=== PATIENT | female | born 1990 | race Caucasian/White ===

== ENCOUNTER 2016-12-20 20:26 | Emergency (ER) | payer OTHER ==
[~2016-12-20] VITALS: Ht 165.1 cm; Wt 84.3 kg
[~2016-12-20 20:26] MED LIST: AUGM875T PO; TYLE3 PO
[2016-12-20] MEDS ORDERED: PREN29TA PO (20:36)
[2016-12-20 20:38] VITALS: BP 115/65; PULSE 80; RESP 16; TEMP 99; O2SAT 100
--- NOTE | 2016-12-20 21:04 | PD ---
HPI Chief Complaint: Abdominal Pain Time Seen by Provider: 21:01 Travel History International Travel<30 days: No Contact w/Intl Traveler<30days: No Traveled to known affect area: No History of Present Illness HPI 26-year-old female presents to the emergency department for complaint of right lower quadrant abdominal pain and right flank pain since Friday. Patient states she had a home test on Friday that was positive. Patient states Friday pain was 2/10 in intensity and currently is 6/10 in intensity. Patient denies fever chills nausea vomiting generalized abdominal pain dysuria frequency or urgency. Patient states times one episode after urination she noted some dark blood. Patient's last menstrual period was 11/17/16 and normal for her. Patient is sexually active with her partner/. Patient is 1 para 0 AB 0. Patient is status post appendectomy. Patient has had previous ovarian cysts. Patient also complained of yesterday having some chest discomfort and tightness that has resolved completely. PFSH Past Medical History Narrative Medical Anemia, appendectomy, no tobacco use, nursing notes reviewed Hx Anticoagulant Therapy: No Anemia: Yes Cardiovascular Problems: No Chemotherapy: No Cerebrovascular Accident: No Diabetes: No Respiratory: No Immunizations Current: No Tetanus Vaccination: < 5 Years Influenza Vaccination: No ?: LMP: 11/17/16 Past Surgical History Appendectomy: Yes Hysterectomy: No Social History Alcohol Use: No Tobacco Use: No Substance Use: No Allergies-Medications (Allergen,Severity, Reaction): Coded Allergies: Advil (Verified Allergy, Severe, Anaphylaxis, 12/20/16) Ibuprofen (Verified Allergy, Severe, Anaphylaxis, 12/20/16) Reported Meds & Prescriptions Reported Meds & Active Scripts Active Keflex (Cephalexin) 500 Mg Cap 500 Mg PO Q6H Reported Plus Iron 29-1 mg ( Vit-Iron Carbonyl) 1 Tab Tab 1 Tab PO DAILY Review of Systems Except as stated in HPI: all other systems reviewed are Neg General / Constitutional: No: Fever, Chills HENT: No: Congestion Cardiovascular: Positive: Chest Pain or Discomfort (occassionally) Respiratory: No: Cough, Shortness of Breath Gastrointestinal: Positive: Abdominal Pain (RLQ), No: Nausea, Vomiting Genitourinary: Positive: Flank Pain (right), No: Dysuria, Pelvic Pain Musculoskeletal: No: Myalgias, Arthralgias Skin: No Rash Hematologic/Lymphatic: No: Lymph Node Enlargement Physical Exam Narrative GENERAL: Well-developed well-nourished female in no acute distress no respiratory distress SKIN: Warm and dry. HEAD: Normocephalic. EYES: No scleral icterus. No injection or drainage. NECK: Supple, trachea midline. No JVD or lymphadenopathy. CARDIOVASCULAR: Regular rate and rhythm without murmurs, gallops, or rubs. RESPIRATORY: Breath sounds equal bilaterally. No accessory muscle use. GASTROINTESTINAL: Abdomen soft, non-tender, nondistended. Tender to palpation right lower quadrant without guarding or rebound. Pelvic exam: External exam no induration erythema or lesions; speculum exam scant white mucous no blood no clots no tissue cervical os closed; bimanual exam no adnexal mass or tenderness no cervical motion tenderness no significant uterine enlargement. MUSCULOSKELETAL: No cyanosis, or edema. BACK: Nontender without obvious deformity; right sided CVA tenderness. Data Data Last Documented VS Orders Beta Hcg (Quant/Titer) (12/20/16 21:01) Complete Blood Count With Diff (12/20/16 21:01) Basic Metabolic Panel (Bmp) (12/20/16 21:01) Complete Rh (12/20/16 21:01) Wet Prep Profile (12/20/16 21:01) Urinalysis - C+S If Indicated (12/20/16 21:01) Iv Access Insert/Monitor (12/20/16 21:01) Ed Urine Pregnancytest Poc (12/20/16 21:01) Electrocardiogram (12/20/16 ) Urine Culture (12/20/16 21:25) Ceftriaxone Inj (Rocephin Inj) (12/20/16 23:30) Us Pelvis (Ques Pr/Ect)W Trans (12/20/16 ) Hydromorphone Pf Inj (Dilaudid Pf Inj) (12/20/16 23:45) Ondansetron Inj (Zofran Inj) (12/20/16 23:45) Labs Laboratory Tests Test 12/20/16 12/20/16 21:15 21:25 White Blood Count 10.7 TH/MM3 Red Blood Count 4.26 MIL/MM3 Hemoglobin 11.4 GM/DL Hematocrit 34.5 % Mean Corpuscular Volume 80.9 FL Mean Corpuscular Hemoglobin 26.9 PG Mean Corpuscular Hemoglobin 33.2 % Concent Red Cell Distribution Width 14.7 % Platelet Count 532 TH/MM3 Mean Platelet Volume 7.8 FL Neutrophils (%) (Auto) 61.7 % Lymphocytes (%) (Auto) 27.7 % Monocytes (%) (Auto) 5.6 % Eosinophils (%) (Auto) 4.6 % Basophils (%) (Auto) 0.4 % Neutrophils # (Auto) 6.6 TH/MM3 Lymphocytes # (Auto) 3.0 TH/MM3 Monocytes # (Auto) 0.6 TH/MM3 Eosinophils # (Auto) 0.5 TH/MM3 Basophils # (Auto) 0.0 TH/MM3 CBC Comment DIFF FINAL Differential Comment Urine Color YELLOW Urine Turbidity SLIGHT Urine pH 6.0 Urine Specific [place] 1.018 Urine Protein NEG mg/dL Urine Glucose (UA) NEG mg/dL Urine Ketones NEG mg/dL Urine Occult Blood NEG Urine Nitrite POS Urine Bilirubin NEG Urine Leukocyte Esterase TRACE Urine RBC 0-2 /hpf Urine WBC 6-8 /hpf Urine Squamous Epithelial 0-5 /hpf Cells Urine Bacteria MOD /hpf Microscopic Urinalysis Comment CULTURE INDICATED [facility] Medical Decision Making Medical Screen Exam Complete: Yes Emergency Medical Condition: Yes Medical Record Reviewed: Yes Interpretation(s) Urinalysis positive nitrites positive leukocyte Estrace positive white blood cells positive bacteria; culture indicated Last Impressions Pelvis Ultrasound 12/20/16 0000 Signed Impressions: Service Date/Time: Wednesday, December 21, 2016 00:35 - CONCLUSION: 1. There is a small cystic structure in the endometrium that may represent a very small gestational sac. However, recommend followup beta-hCG values and followup ultrasound to confirm appropriate progression of . 2. There is a mildly thick walled cystic lesion in the left ovary measuring up to 2.5 cm. Imaging appearance favors a corpus luteal cyst. 3. There is a small volume of free fluid in the posterior cul-de-sac which appears mildly complex and could be partially hemorrhagic. Suggest attention to this on followup ultrasound. 4. There is an intramural leiomyoma in the right uterine body measuring 2.4 cm. Yemi Callaway MD CBC & BMP Diagram 12/20/16 21:15 HC Differential Diagnosis Abdominal pain, UTI, renal colic, ruptured ovarian cyst, ovarian torsion, ectopic renal colic, Narrative Course IV access obtained specimens collected and sent for resulting. Patient with positive [id number] hCG; abnormal urinalysis; patient given first dose of IV antibiotic Rocephin 1 g Ultrasound ordered Ultrasound consistent with early very early intrauterine and bilateral ovarian cysts scant free fluid At this time patient appears to be consistent with early intrauterine ; quantitative hCG 1236 consistent with 3-4 weeks . Patient encouraged to have close follow-up with [employer]GE MASTER SPECIALIST and to have repeat quantitative hCG in 48 hours. Patient encouraged to follow-up in the emergency department for pain fever vomiting or any concerns. Diagnosis Primary Impression: Qualified Code: Z3A.01 - Less than 8 weeks gestation of Additional Impressions: UTI (urinary tract infection) Qualified Code: N30.00 - Acute cystitis without hematuria Ovarian cyst Qualified Code: N83.201 - Cysts of both ovaries Referrals: [employer] 2 days Primary Care Physician 2 days Patient Instructions: General Instructions Departure Forms: Tests/Procedures, Work Release Special Instructions: no work x 1 day Additional Instructions: Increase fluid hydration Monitor temperature every 4 hours with thermometer and administer as needed acetaminophen/Tylenol for fever 100.4F or greater or for minor discomfort Complete course of antibiotic as prescribed Continue vitamins Follow-up with mysql developer Repeat hormone level and 48 hours Follow-up with primary care provider No work times one day Return to the emergency department for any concerns pain fever vomiting vaginal bleeding or other changes Med/Other Pt SpecificInfo: Prescription(s) given Scripts Cephalexin (Keflex)500 Mg Hep579 Mg PO Q6H #28 CAP Ref 0 Prov:Dilcia Spence MD 12/21/16 Disposition: 01 DISCHARGE HOME Condition: Stable Dilcia Spence MD Dec 20, 2016 21:04 encouraged to have close follow-up with CHARGE MASTER SPECIALIST and to have repeat quantitative hCG in 48 hours. Patient encouraged to follow-up in the emergency department for pain fever vomiting or any concerns. Diagnosis Primary Impression: Qualified Code: Z3A.01 - Less than 8 weeks gestation of Additional Impressions: UTI (urinary tract infection) Qualified Code: N30.00 - Acute cystitis without hematuria Ovarian cyst Qualified Code: N83.201 - Cysts of both ovaries Referrals: [employer] 2 days Primary Care Physician 2 days Patient Instructions: General Instructions Departure Forms: Tests/Procedures, Work Release Special Instructions: no work x 1 day Additional Instructions: Increase fluid hydration Monitor temperature every 4 hours with thermometer and administer as needed acetaminophen/Tylenol for fever 100.4F or greater or for minor discomfort Complete course of antibiotic as prescribed Continue vitamins Follow-up with mysql developer Repeat hormone level and 48 hours Follow-up with primary care provider No work times one day Return to the emergency department for any concerns pain fever vomiting vaginal bleeding or other changes Med/Other Pt SpecificInfo: Prescription(s) given Scripts Cephalexin (Keflex)500 Mg Uuf193 Mg PO Q6H #28 CAP Ref 0 Prov:Dilcia Spence MD 12/21/16 Disposition: 01 DISCHARGE HOME Condition: Stable Dilcia Spence MD Dec 20, 2016 21:04
[2016-12-20 21:34] LABS: AUTOMATED NEUTROPHIL # 6.6 TH/MM3 (1.8-7.7); BASOPHIL % 0.4 % (0.0-2.0); EOSINOPHIL # 0.5 TH/MM3 (0-0.4); EOSINOPHIL % 4.6 % (0.0-4.0); HEMATOCRIT 34.5 % (35.0-46.0); HEMO FLAGS DIFF FINAL; LYMPH % 27.7 % (9.0-44.0); MEAN CELL VOLUME 80.9 FL (80.0-100.0); MEAN CORPUSCULAR HEMOGLOBIN 26.9 PG (27.0-34.0); MEAN CORPUSCULAR HGB CONC 33.2 % (32.0-36.0); MONO % 5.6 % (0.0-8.0); NEUT % 61.7 % (16.0-70.0); PLATELET COUNT 532 TH/MM3 (150-450); RED BLOOD COUNT 4.26 MIL/MM3 (4.00-5.30); RED CELL DISTRIBUTION WIDTH 14.7 % (11.6-17.2); WHITE BLOOD COUNT 10.7 TH/MM3 (4.0-11.0)
[2016-12-20 21:40] VITALS: BP 109/57; PULSE 87; RESP 16; O2SAT 100
[2016-12-20 21:42] LABS: POTASSIUM 3.6 MEQ/L (3.5-5.1)
[2016-12-20 21:44] LABS: BLOOD, URINE NEG (NEG); GLUCOSE,URINE NEG (NEG); KETONE, URINE NEG (NEG)
[2016-12-20 21:44] LABS: BICARBONATE 23.1 MEQ/L (21.0-32.0)
[2016-12-20 22:05] LABS: NITRITE,URINE POS (NEG); URINE COLOR YELLOW (YELLW/STRAW)
[2016-12-20 22:06] LABS: BACTERIA, URINE MOD /hpf; COMMENT (UR) CULTURE INDICATED; CULTURE IF INDICATED CULTURE INDICATED; RBC, URINE 0-2 /hpf (0-3); SQUAMOUS EPITHELIAL CELL URINE 0-5 /hpf (0-5)
[2016-12-20 22:40] VITALS: BP 108/45; PULSE 93; RESP 16; O2SAT 100
[2016-12-20] MEDS ORDERED: cefTRIAXone INJ 1,000 MG in SODIUM CHLORIDE 0.9% INJ 100 ML IV ONE (23:30)
[2016-12-20] MEDS ORDERED: HYDROmorphone HCL PF 1 MG/ML VIAL IV PUSH ONE (23:45)
[2016-12-20] MEDS ORDERED: ONDANSETRON HCL 4 MG/2 ML VIAL IV PUSH ONE (23:45)
[2016-12-20 23:46] VITALS: BP 111/62; PULSE 81; RESP 16; O2SAT 100
[2016-12-21 01:30] VITALS: BP 104/58; PULSE 80; RESP 16; O2SAT 100
--- NOTE | 2016-12-21 01:42 | RADHPO ---
EXAM DATE/TIME: 12/21/2016 00:35 [facility] COMPARISON: No previous studies available for comparison. INDICATIONS : Pelvic pain. LAB(S): Beta-hC MEDICAL HISTORY : . Anemia. SURGICAL HISTORY : Appendectomy. ENCOUNTER: Initial ACUITY: 1 day PAIN SCORE: 6/10 LOCATION: Bilateral pelvis MEASUREMENTS: UTERUS: 8.0 x 5.7 x 4.4 cm ENDOMETRIAL STRIPE: 11 mm RIGHT OVARY: 3.1 x 1.8 x 1.4 cm LEFT OVARY: 3.7 x 2.9 x 1.9 cm FINDINGS: UTERUS: Uterus is anteverted. There is a hypoechoic solid mass in the right posterior uterine body that is mi ldly exophytic measuring 2.4 x 2.0 x 2.0 cm. There is a small ovoid cystic structure eccentrically lo cated within the endometrium measuring 5 x 2 x 3 mm. It is too small to estimated date this does repr esent a gestational sac. No yolk sac is visualized. RIGHT OVARY: Ovary contains no mass or significant cystic lesion. Follicles are present. LEFT OVARY: Left ovary contains a mildly thick walled cystic lesion measuring 2.5 x 1.6 x 2.4 cm. MISCELLANEOUS: There is a small volume of free fluid in the posterior cul-de-sac that contains some low level university internship al echoes. CONCLUSION: 1. There is a small cystic structure in the endometrium that may represent a very small gestational s ac. However, recommend followup beta-hCG values and followup ultrasound to confirm appropriate progre ssion of . 2. There is a mildly thick walled cystic lesion in the left ovary measuring up to 2.5 cm. Imaging colleen earance favors a corpus luteal cyst. 3. There is a small volume of free fluid in the posterior cul-de-sac which appears mildly complex and could be partially hemorrhagic. Suggest attention to this on followup ultrasound. 4. There is an intramural leiomyoma in the right uterine body measuring 2.4 cm. Yemi Callaway MD on December 21, 2016 at 1:36 Board Certified Radiologist. This report was verified electronically.
[2016-12-21] MEDS ORDERED: CEPH-460 PO (02:05)
[2016-12-21 02:23] VITALS: BP 115/62
--- NOTE | 2016-12-22 13:21 | EKG ---
Date Performed: 12/20/2016 Time Performed: 21:11:14 PTAGE: 26 years EKG: Sinus rhythm . Since previous tracing, no significant change noted Normal ECG PREVIOUS TRACING : 05/05/2014 18.04 DOCTOR: Gabrielle Church Interpretating Date/Time 12/22/2016 13:20:00
== END 2016-12-21 02:31 | disposition home or self-care (01) ==
LOC: PHED 20:26
DX: O23.41 Unspecified infection of urinary tract in pregnancy, first trimester (principal); R10.31 Right lower quadrant pain; B96.20 Unspecified Escherichia coli [E. coli] as the cause of diseases classified elsewhere; N83.201 Unspecified ovarian cyst, right side; N83.202 Unspecified ovarian cyst, left side; D64.9 Anemia, unspecified; Z3A.01 Less than 8 weeks gestation of pregnancy
CPT/HCPCS: 76700; 76817; 80048; 81001; 84702; 84703; 85025; 86901; 87077; 87086; 87186; 87210; 93005; 96365; 99284; J0696

== ENCOUNTER 2016-12-26 17:40 | Emergency (ER) | payer OTHER ==
[~2016-12-26] VITALS: Ht 165.1 cm; Wt 85.5 kg
[~2016-12-26 17:40] MED LIST changes: -AUGM875T PO; +CEPH-460 PO; +PREN29TA PO; -TYLE3 PO
[2016-12-26 18:12] VITALS: BP 113/59; PULSE 95; RESP 18; TEMP 98.1; O2SAT 96
[2016-12-26 20:58] VITALS: BP 118/62; PULSE 88; RESP 18; O2SAT 98
--- NOTE | 2016-12-26 21:08 | PD ---
HPI Chief Complaint: Related Problem Time Seen by Provider: 20:47 Travel History International Travel<30 days: No Contact w/Intl Traveler<30days: No Traveled to known affect area: No History of Present Illness HPI This 26-year-old female is complaining of abdominal pain. Says he is having some lower abdominal pain for several days. She was here last Friday some right -sided abdominal pain area at that time her beta titer was 1236. She had a pelvic ultrasound that includes numerous question of a cystic lesion which may represent an intrauterine . Apparently the scan was not definitive for intrauterine . She has not had any vaginal bleeding. . She was found to have a urinary tract infection on her last visit. Her blood type is A+ PFSH Past Medical History Hx Anticoagulant Therapy: No Anemia: Yes Cardiovascular Problems: No Chemotherapy: No Cerebrovascular Accident: No Diabetes: No Diminished Hearing: No Respiratory: No Immunizations Current: No Tetanus Vaccination: < 5 Years Influenza Vaccination: No ?: LMP: 12-30-16 Past Surgical History Appendectomy: Yes Hysterectomy: No Social History Alcohol Use: No Tobacco Use: No Substance Use: No Allergies-Medications (Allergen,Severity, Reaction): Coded Allergies: Advil (Verified Allergy, Severe, Anaphylaxis, 12/26/16) Ibuprofen (Verified Allergy, Severe, Anaphylaxis, 12/26/16) Reported Meds & Prescriptions Reported Meds & Active Scripts Active Keflex (Cephalexin) 500 Mg Cap 500 Mg PO Q6H Reported Plus Iron 29-1 mg ( Vit-Iron Carbonyl) 1 Tab Tab 1 Tab PO DAILY Review of Systems General / Constitutional: No: Fever, Chills Eyes: No: Diploplia, Blurred Vision HENT: No: Headaches, Vertigo Cardiovascular: No: Chest Pain or Discomfort, Palpitations Respiratory: No: Cough, Shortness of Breath Gastrointestinal: No: Vomiting Genitourinary: Positive: Pelvic Pain, No: Hesitancy, Vaginal Bleeding Musculoskeletal: No: Myalgias, Arthralgias Skin: No Rash, No Itching Physical Exam Narrative GENERAL: Well-developed female SKIN: Warm and dry. HEAD: Atraumatic. Normocephalic. EYES: Pupils equal and round. No scleral icterus. No injection or drainage. ENT: No nasal bleeding or discharge. Mucous membranes pink and moist. NECK: Trachea midline. No JVD. CARDIOVASCULAR: Regular rate and rhythm. No murmur appreciated. RESPIRATORY: No accessory muscle use. Clear to auscultation. Breath sounds equal bilaterally. GASTROINTESTINAL: Abdomen soft, non-tender, nondistended. Hepatic and splenic margins not palpable. Pelvic: Os is closed. Uterus is not palpably enlarged. There is minimal tenderness MUSCULOSKELETAL: No obvious deformities. No clubbing. No cyanosis. No edema. NEUROLOGICAL: Awake and alert. No obvious cranial nerve deficits. Motor grossly within normal limits. Normal speech. PSYCHIATRIC: Appropriate mood and affect; insight and judgment normal. Data Data Last Documented VS Vital Signs Date Time Temp Pulse Resp B/P Pulse Ox O2 Delivery O2 Flow Rate FiO2 12/26/16 20:58 88 18 118/62 98 Room Air 12/26/16 18:12 98.1 Orders Complete Blood Count With Diff (12/26/16 21:02) Urinalysis - C+S If Indicated (12/26/16 21:02) Beta Hcg (Quant/Titer) (12/26/16 21:02) Us Pelvis (Ques Pr/Ect)W Trans (12/26/16 21:02) Labs Laboratory Tests Test 12/26/16 21:10 White Blood Count 11.5 TH/MM3 Red Blood Count 4.34 MIL/MM3 Hemoglobin 11.6 GM/DL Hematocrit 34.9 % Mean Corpuscular Volume 80.4 FL Mean Corpuscular Hemoglobin 26.8 PG Mean Corpuscular Hemoglobin 33.3 % Concent Red Cell Distribution Width 14.6 % Platelet Count 469 TH/MM3 Mean Platelet Volume 7.4 FL Neutrophils (%) (Auto) 63.8 % Lymphocytes (%) (Auto) 25.4 % Monocytes (%) (Auto) 5.6 % Eosinophils (%) (Auto) 4.5 % Basophils (%) (Auto) 0.7 % Neutrophils # (Auto) 7.4 TH/MM3 Lymphocytes # (Auto) 2.9 TH/MM3 Monocytes # (Auto) 0.6 TH/MM3 Eosinophils # (Auto) 0.5 TH/MM3 Basophils # (Auto) 0.1 TH/MM3 CBC Comment DIFF FINAL Differential Comment Urine Color YELLOW Urine Turbidity SLIGHT Urine pH 6.0 Urine Specific [place] 1.015 Urine Protein NEG mg/dL Urine Glucose (UA) NEG mg/dL Urine Ketones NEG mg/dL Urine Occult Blood TRACE Urine Nitrite NEG Urine Bilirubin NEG Urine Leukocyte Esterase SMALL Urine WBC 3-5 /hpf Urine Squamous Epithelial > 8 /hpf Cells Urine Bacteria FEW /hpf Urine Mucus RARE /lpf Microscopic Urinalysis Comment CULT NOT INDICATED Human Chorionic Gonadotropin, 8968 MIU/ML Quant MDM Medical Decision Making Medical Screen Exam Complete: Yes Emergency Medical Condition: Yes Medical Record Reviewed: Yes Differential Diagnosis Differential includes ectopic , threatened AB, intrauterine Narrative Course Beta titer today is 8900. Ultrasound shows early intrauterine too early to date or see a pole. Gestational sac has increased in size. There is a subchorionic hemorrhage noted which was not present on the previous ultrasound. Persistent left ovarian cyst. There had been some free fluid in the pelvic cul-de-sac which has improved. Diagnosis Primary Impression: Intrauterine Disposition: 01 DISCHARGE HOME Condition: Stable Soy Miles MD Dec 26, 2016 21:08
[2016-12-26 21:23] LABS: BLOOD, URINE TRACE (NEG); GLUCOSE,URINE NEG (NEG); KETONE, URINE NEG (NEG); NITRITE,URINE NEG (NEG)
[2016-12-26 21:25] LABS: AUTOMATED NEUTROPHIL # 7.4 TH/MM3 (1.8-7.7); BASOPHIL # 0.1 TH/MM3 (0-0.2); BASOPHIL % 0.7 % (0.0-2.0); EOSINOPHIL # 0.5 TH/MM3 (0-0.4); EOSINOPHIL % 4.5 % (0.0-4.0); HEMATOCRIT 34.9 % (35.0-46.0); HEMO FLAGS DIFF FINAL; LYMPH % 25.4 % (9.0-44.0); LYMPHOCYTE # 2.9 TH/MM3 (1.0-4.8); MEAN CELL VOLUME 80.4 FL (80.0-100.0); MEAN CORPUSCULAR HEMOGLOBIN 26.8 PG (27.0-34.0); MEAN CORPUSCULAR HGB CONC 33.3 % (32.0-36.0); MONO % 5.6 % (0.0-8.0); NEUT % 63.8 % (16.0-70.0); PLATELET COUNT 469 TH/MM3 (150-450); RED BLOOD COUNT 4.34 MIL/MM3 (4.00-5.30); RED CELL DISTRIBUTION WIDTH 14.6 % (11.6-17.2); WHITE BLOOD COUNT 11.5 TH/MM3 (4.0-11.0)
[2016-12-26 21:32] LABS: SQUAMOUS EPITHELIAL CELL URINE > 8 /hpf (0-5); URINE COLOR YELLOW (YELLW/STRAW)
[2016-12-26 21:33] LABS: BACTERIA, URINE FEW /hpf
[2016-12-26 21:34] LABS: MUCUS URINE RARE /lpf (OCC)
[2016-12-26 21:35] LABS: COMMENT (UR) CULT NOT INDICATED; CULTURE IF INDICATED CULT NOT INDICATED
[2016-12-26 21:55] LABS: BETA HCG QUANT 8968 MIU/ML (0-5)
[2016-12-26 23:00] VITALS: BP 116/66; PULSE 78; RESP 18; O2SAT 98
--- NOTE | 2016-12-26 23:22 | RADHPO ---
EXAM DATE/TIME: 12/26/2016 22:35 [facility] COMPARISON: US PELVIS (QUEST PREG/ECTOPIC) W/TRANSVAG, December 21, 2016, 0:35. INDICATIONS : Pelvic pain. LAB(S): Beta-hC,968 MEDICAL HISTORY : . Anemia. SURGICAL HISTORY : Appendectomy. ENCOUNTER: Initial ACUITY: 1 day PAIN SCORE: 2/10 LOCATION: Bilateral pelvis MEASUREMENTS: UTERUS: 8.2 x 5.4 x 6.3 cm ENDOMETRIAL STRIPE: 15 mm RIGHT OVARY: 3.0 x 1.7 x 1.2 cm LEFT OVARY: 4.0 x 2.0 x 2.9 cm FINDINGS: UTERUS: 9 mm gestational sac with a yolk sac noted. Gestational sac still out of range and no perceptible fet al pole but the gestational sac is slightly larger. There is a 14 x 7 x 10 mm complex fluid collectio n adjacent to the gestational sac of concern for a subchorionic hemorrhage. The 2.8 cm fibroid of the right body is unchanged. RIGHT OVARY: Ovary contains no mass or significant cystic lesion. LEFT OVARY: 2.5 x 2.0 x 2.4 cm cyst of the left ovary, not new. MISCELLANEOUS: No free fluid. CONCLUSION: 1. Early intrauterine again noted, too early to date or see a pole. The gestational s ac is larger and beta hCG is increasing. 2. An apparent subchorionic hemorrhage has developed in the interim. 3. The left ovarian cyst is not significantly changed, presumably a corpus luteal cyst. 4. Previously seen free fluid in the pelvic cul-de-sac has resolved. Yemi Whatley MD on December 26, 2016 at 23:16 Board Certified Radiologist. This report was verified electronically.
== END 2016-12-26 23:43 | disposition home or self-care (01) ==
LOC: PHED 17:40
DX: Z33.1 Pregnant state, incidental (principal)
CPT/HCPCS: 76700; 76817; 81001; 84702; 85025